=== PATIENT | male | born 1990 | race Caucasian/White ===

== ENCOUNTER 2018-09-17 21:41 | Emergency (ER) | payer SELFPAY ==
[2018-09-17 23:24] LABS: Absolute Lymphocytes (CBC) 3.4 K/uL (0.7-4.9); Absolute Neutrophil 5.5 K/uL (1.8-8.0); Basophils % 0.9 % (0-1.3); Eosinophils % 3.8 % (0-4.4); Hematocrit 40.6 % (39.6-49.0); Lymphocytes % 33.2 % (15.3-44.8); MPV 9.1 fL (7.6-11.3); Monocytes % 9.5 % (3.3-12.3); RBC Red Blood Cell Count 4.58 M/uL (4.33-5.43)
[2018-09-17 23:45] LABS: ALT/SGPT 32 U/L (12-78); AST/SGOT 16 U/L (15-37); Albumin 3.5 g/dL (3.4-5.0); Alkaline Phosphatase 87 U/L (45-117); BUN Blood Urea Nitrogen 21 mg/dL (7-18); Bicarbonate 28 mmol/L (21-32); Bilirubin Total 0.4 mg/dL (0.2-1.0); Glucose Level 111 mg/dL (74-106); Potassium 3.6 mmol/L (3.5-5.1); Protein, Total 6.8 g/dL (6.4-8.2); Sodium Level 143 mmol/L (136-145)
[2018-09-17] MEDS ORDERED: LIDOCAINE 2% MPF 5 ML VIAL ONE (23:48)
[2018-09-17] MEDS ORDERED: ACETAMINOPHEN 500 MG TAB ONE (23:48)
[2018-09-17] MEDS ORDERED: CLINDAMYCIN 900MG/D5W 900 MG/50 ML IVPB IV ONE (23:48)
--- NOTE | 2018-09-18 01:03 | ER ---
Nurse's Notes [facility] Name: Doroteo Becerril Age: 28 yrs Sex: Male : 1990 Arrival Date: 09/17/2018 Time: 21:44 Bed 17 Private MD: Diagnosis: acute cutaneous abscess of the Left buttock Presentation: 09/17 21:46 Presenting complaint: Patient states: I have a boil on my left butt area, I have had la1 staph in the past and had to have sx both times. Transition of care: patient was not received from another setting of care. Onset of symptoms was September 17, 2018. Risk Assessment: Do you want to hurt yourself or someone else? Patient reports no desire to harm self or others. Initial Sepsis Screen: Does the patient meet any 2 criteria? No. Patient's initial sepsis screen is negative. Does the patient have a suspected source of infection? No. Patient's initial sepsis screen is negative. Care prior to arrival: None. 21:46 Method Of Arrival: Ambulatory la1 21:46 Acuity: KEISHA 3 la1 Historical: - Allergies: 21:46 Amoxicillin; la1 - PMHx: 21:46 None; la1 - PSHx: 21:46 abscess drainage (surgical x2); la1 - Immunization history:: Adult Immunizations up to date. - Social history:: Smoking status: Patient uses tobacco products, smokes one-half pack cigarettes per day. - Ebola Screening: : No symptoms or risks identified at this time. - Family history:: not pertinent. - Hospitalizations: : No recent hospitalization is reported. Screenin:14 Abuse screen: Denies threats or abuse. Denies injuries from another. Nutritional ed1 screening: No deficits noted. Tuberculosis screening: No symptoms or risk factors identified. Fall Risk None identified. Assessment: 22:14 General: Appears in no apparent distress. Behavior is calm, cooperative. Pain: ed1 Complains of pain in gluteal cleft Pain currently is 8 out of 10 on a pain scale. Quality of pain is described as throbbing, Pain began 1 day ago. Is continuous. Neuro: Level of Consciousness is awake, alert, obeys commands, Oriented to person, place, time, situation. Cardiovascular: Denies chest pain, Heart tones S1 S2 present. Respiratory: Airway is patent Respiratory effort is even, unlabored, Respiratory pattern is regular, symmetrical, Breath sounds are clear bilaterally. Denies cough, shortness of breath. GI: No signs and/or symptoms were reported involving the gastrointestinal system. : No signs and/or symptoms were reported regarding the genitourinary system. EENT: No signs and/or symptoms were reported regarding the EENT system. Derm: Skin is healthy with good turgor, Skin is dry, Skin is normal, Skin temperature is warm Abscess located on gluteal cleft is red, is raised, was lanced by patient prior to arrival. Musculoskeletal: Circulation, motion, and sensation intact. Range of motion: intact in all extremities. 23:43 Reassessment: Patient appears in no apparent distress at this time. No changes from ed1 previously documented assessment. Patient and/or family updated on plan of care and expected duration. Pain level reassessed. Patient is alert, oriented x 3, equal unlabored respirations, skin warm/dry/pink. Patient states symptoms have not improved. 09/18 01:02 Reassessment: Patient appears in no apparent distress at this time. Patient and/or ed1 family updated on plan of care and expected duration. Pain level reassessed. Patient is alert, oriented x 3, equal unlabored respirations, skin warm/dry/pink. Patient states symptoms have not improved. Vital Signs: 09/17 21:47 BP 132 / 73; Pulse 77; Resp 16; Temp 98.7; Pulse Ox 98% on R/A; Weight 149.69 kg; la1 Height 6 ft. 2 in. (187.96 cm); Pain 8/10; 23:43 BP 129 / 78; Pulse 83; Resp 19; Temp 98.5(TE); Pulse Ox 99% on R/A; Pain 8/10; ed1 09/18 01:02 BP 128 / 76; Pulse 79; Resp 17; Temp 98.5(O); Pulse Ox 100% on R/A; Pain 8/10; ed1 09/17 21:47 Body Mass Index 42.37 (149.69 kg, 187.96 cm) la1 ED Course: 09/17 21:44 Patient arrived in ED. am2 21:47 Triage completed. la1 21:47 Arm band placed on right wrist. la1 21:56 Kishan Brownlee MD is Attending Physician. wa 22:05 Soraya Stewart, RN is Primary Nurse. ed1 22:14 Patient has correct armband on for positive identification. Placed in gown. Bed in low ed1 position. Call light in reach. Adult w/ patient. 23:08 Initial lab(s) drawn, by me, sent to lab. Inserted saline lock: 20 gauge in right ed1 antecubital area, using aseptic technique. Blood collected. 09/18 01:02 Assist provider with I \T\ D: of an abscess on left buttock Set up I\T\D tray. Performed by ed 1 Kishan Brownlee MD Wound packed. iodoform gauze, Dressing with 4X4s, Patient tolerated well. 01:11 IV discontinued, intact, bleeding controlled, No redness/swelling at site. Pressure ed1 dressing applied. Administered Medications: 09/17 23:42 Drug: Clindamycin 900 mg Route: IVPB; Infused Over: 30 mins; Site: right antecubital; ed1 09/18 00:20 Follow up: Response: No adverse reaction; IV Status: Completed infusion; IV Intake: [id number] 09/17 23:42 Drug: Tylenol 1000 mg Route: PO; ed1 09/18 01:01 Follow up: Response: No adverse reaction; Pain is unchanged, physician notified ed1 09/17 23:42 Drug: Lidocaine (2 %) Syringe 100 mg {Note: Placed at bedside for provider admin.} ed1 Volume: 5 ml; Route: Infiltration; Intake: 09/18 00:20 IV: 50ml; Total: 50ml. ed1 Outcome: 01:02 Discharge ordered by . ok 01:11 Discharged to home ambulatory, with family. ed1 01:11 Condition: good 01:11 Discharge instructions given to patient, Instructed on discharge instructions, follow up and referral plans. medication usage, Demonstrated understanding of instructions, follow-up care, medications, Prescriptions given X 3. 01:11 Patient left the ED. ed1 Signatures: Soraya Stewart RN RN ed1 Tee Rojas RN RN roby1 Leslie Maxwell am2 Kishan Brownlee MD MD wa
--- NOTE | 2018-09-18 01:03 | EDPHYS ---
Physician Documentation [facility] Name: Doroteo Becerril Age: 28 yrs Sex: Male : 1990 Arrival Date: 09/17/2018 Time: 21:44 Bed 17 Private MD: ED Physician Kishan Brownlee HPI: 09/18 08:46 This 28 yrs old Male presents to ER via Ambulatory with complaints of wa Bodyache, buttock lesion hx of staph. 08:46 The patient presents with an abscess of the buttocks. Description: The affected area is wa moderate sized, irregular, localized, draining, erythematous, fluctuant. Onset: The symptoms/episode began/occurred 1 week(s) ago. Possible cause(s): staph. Associated signs and symptoms: Pertinent positives: chills. Modifying factors: the symptoms are alleviated by nothing, the symptoms are aggravated by sitting, squeezing the lesion and expressing the contents, touching. Severity of symptoms: At their worst the symptoms were moderate, in the emergency department the symptoms are actually worse. The patient has not experienced similar symptoms in the past. The patient has not recently seen a physician. Historical: - Allergies: 09/17 21:46 Amoxicillin; la1 - PMHx: 21:46 None; la1 - PSHx: 21:46 abscess drainage (surgical x2); la1 - Immunization history:: Adult Immunizations up to date. - Social history:: Smoking status: Patient uses tobacco products, smokes one-half pack cigarettes per day. - Ebola Screening: : No symptoms or risks identified at this time. - Family history:: not pertinent. - Hospitalizations: : No recent hospitalization is reported. ROS: 09/18 08:47 Constitutional: Negative for fever, chills, and weight loss, Eyes: Negative for injury, wa pain, redness, and discharge, ENT: Negative for injury, pain, and discharge, Neck: Negative for injury, pain, and swelling, Cardiovascular: Negative for chest pain, palpitations, and edema, Respiratory: Negative for shortness of breath, cough, wheezing, and pleuritic chest pain, Abdomen/GI: Negative for abdominal pain, nausea, vomiting, diarrhea, and constipation, Back: Negative for injury and pain, MS/Extremity: Negative for injury and deformity, Neuro: Negative for headache, weakness, numbness, tingling, and seizure. Skin: Positive for abscess, of the L buttocks. All other systems are negative. Exam: 08:48 Constitutional: This is a well developed, well nourished patient who is awake, alert, wa and in no acute distress. Head/Face: Normocephalic, atraumatic. Eyes: Pupils equal round and reactive to light, extra-ocular motions intact. Lids and lashes normal. Conjunctiva and sclera are non-icteric and not injected. Cornea within normal limits. Periorbital areas with no swelling, redness, or edema. ENT: Nares patent. No nasal discharge, no septal abnormalities noted. Tympanic membranes are normal and external auditory canals are clear. Oropharynx with no redness, swelling, or masses, exudates, or evidence of obstruction, uvula midline. Mucous membranes moist. Neck: Trachea midline, no thyromegaly or masses palpated, and no cervical lymphadenopathy. Supple, full range of motion without nuchal rigidity, or vertebral point tenderness. No Meningismus. Chest/axilla: Normal chest wall appearance and motion. Nontender with no deformity. No lesions are appreciated. Cardiovascular: Regular rate and rhythm with a normal S1 and S2. No gallops, murmurs, or rubs. Normal PMI, no JVD. No pulse deficits. Respiratory: Lungs have equal breath sounds bilaterally, clear to auscultation and percussion. No rales, rhonchi or wheezes noted. No increased work of breathing, no retractions or nasal flaring. Abdomen/GI: Soft, non-tender, with normal bowel sounds. No distension or tympany. No guarding or rebound. No evidence of tenderness throughout. Back: No spinal tenderness. No costovertebral tenderness. Full range of motion. MS/ Extremity: Pulses equal, no cyanosis. Neurovascular intact. Full, normal range of motion. Neuro: Awake and alert, GCS 15, oriented to person, place, time, and situation. Cranial nerves II-XII grossly intact. Motor strength 5/5 in all extremities. Sensory grossly intact. Cerebellar exam normal. Normal gait. Psych: Awake, alert, with orientation to person, place and time. Behavior, mood, and affect are within normal limits. 08:48 Skin: abscess, that is moderate sized, of the L buttocks, with fluctuance, with induration. Vital Signs: 09/17 21:47 BP 132 / 73; Pulse 77; Resp 16; Temp 98.7; Pulse Ox 98% on R/A; Weight 149.69 kg; la1 Height 6 ft. 2 in. (187.96 cm); Pain 8/10; 23:43 BP 129 / 78; Pulse 83; Resp 19; Temp 98.5(TE); Pulse Ox 99% on R/A; Pain 8/10; ed1 09/18 01:02 BP 128 / 76; Pulse 79; Resp 17; Temp 98.5(O); Pulse Ox 100% on R/A; Pain 8/10; ed1 09/17 21:47 Body Mass Index 42.37 (149.69 kg, 187.96 cm) ca1 Procedures: 08:49 I \T\ D: Incision and drainage was performed for an abscess of the L buttocks Prepped wa with Betadine, Anesthetized with 3 ml's 2% Lidocaine. Incised with #11 blade. Drained small amount Packed with iodoform gauze, Dressing: sterile 4x4 gauze, the patient tolerated the procedure well. MDM: 09/17 21:56 Patient medically screened. oh 09/18 08:49 Differential diagnosis: abscess. Data reviewed: vital signs, nurses notes. Test wa interpretation: by ED physician or midlevel provider: labs noted wnl. Response to treatment: the patient's symptoms have markedly improved after treatment. 09/17 22:45 Order name: CMP; Complete Time: 00:27 oh 09/17 22:45 Order name: CBC with Diff; Complete Time: 00:27 oh 09/17 22:44 Order name: I\T\D Setup; Complete Time: 23:42 oh 09/17 22:44 Order name: IV Start; Complete Time: 23:08 oh Administered Medications: 09/17 23:42 Drug: Clindamycin 900 mg Route: IVPB; Infused Over: 30 mins; Site: right antecubital; ed1 09/18 00:20 Follow up: Response: No adverse reaction; IV Status: Completed infusion; IV Intake: [id number] 09/17 23:42 Drug: Tylenol 1000 mg Route: PO; ed1 09/18 01:01 Follow up: Response: No adverse reaction; Pain is unchanged, physician notified ed1 09/17 23:42 Drug: Lidocaine (2 %) Syringe 100 mg {Note: Placed at bedside for provider admin.} ed1 Volume: 5 ml; Route: Infiltration; Disposition: 09/18/18 01:02 Discharged to Home. Impression: acute cutaneous abscess of the Left buttock. - Condition is Stable. - Discharge Instructions: Skin Abscess, [id number]. - Prescriptions for Keflex 500 mg Oral Capsule - take 1 capsule by ORAL route every 8 hours for 7 days; 21 capsule. Bactrim DS 800- 160 mg Oral Tablet - take 1 tablet by ORAL route every 12 hours for 7 days; 14 tablet. Ibuprofen 600 mg Oral Tablet - take 1 tablet by ORAL route every 8 hours As needed take with food; 30 tablet. - Work release form, Medication Reconciliation Form, Thank You Letter, Antibiotic Education, Prescription Opioid Use form. - Follow up: Private Physician; When: 2 - 3 days; Reason: Recheck today's complaints. - Problem is new. - Symptoms have improved. - Notes: take antibiotics as prescribed. do sitz baths as prescribed. see your doctor within 2-3 days for wound check Signatures: Dispatcher [employer] EDMS Soraya Stewart RN RN ed1 Tee Rojas RN RN la1 Kishan Brownlee MD MD wa Corrections: (The following items were deleted from the chart) 09/18 01:11 01:02 09/18/2018 01:02 Discharged to Home. Impression: acute cutaneous abscess of the ed1 Left buttock. Condition is Stable. Forms are Medication Reconciliation Form, Thank You Letter, Antibiotic Education, Prescription Opioid Use. Follow up: Private Physician; When: 2 - 3 days; Reason: Recheck today's complaints. Problem is new. Symptoms have improved. wa
== END 2018-09-18 01:11 | disposition home or self-care (01) ==
LOC: ER 21:41
PROC: 0J990ZZ Drainage of Buttock Subcutaneous Tissue and Fascia, Open Approach (ICD-10-PCS; principal; 2018-09-18)
DX: L02.31 Cutaneous abscess of buttock (principal); F17.210 Nicotine dependence, cigarettes, uncomplicated; Z88.1 Allergy status to other antibiotic agents
CPT/HCPCS: 36415; 80053; 85025; 96365; 99284